=== PATIENT | female | born 1930 | race Caucasian/White ===

== ENCOUNTER 2020-10-14 18:40 | Emergency (ER) | payer MEDICARE ==
[~2020-10-14] VITALS: Wt 72.6 kg
[2020-10-14 20:04] LABS: HEMATOCRIT 34.5 % (37.0-47.0); MEAN CORPUSCULAR HGB 29.4 pg (27.0-31.0); MEAN CORPUSCULAR HGB CONC 31.6 g/dl (33.0-37.0); MEAN PLATELET VOLUME 9.6 fl (9.6-12.3); PLATELET COUNT AUTOMATED 279 10*3/uL (130-400); RED BLOOD COUNT 3.71 10*6/uL (4.10-5.10); RED CELL DISTRI WIDTH 13.9 % (0-14.5); WHITE BLOOD COUNT 14.2 10*3/uL (4.8-10.8)
[2020-10-14 20:16] LABS: ALBUMIN 2.4 gm/dl (3.1-4.5); CREATININE 6.17 mg/dL (0.55-1.02)
[2020-10-14 20:29] LABS: POTASSIUM 6.2 mmol/L (3.5-5.1)
[2020-10-14 20:31] LABS: BASOPHILS 1 % (0-1); TOTAL CELLS COUNTED 100 #CELLS
[2020-10-14 20:35] LABS: PLATELET SUFFICIENCY NORMAL (NORMAL)
[2020-10-14 20:57] LABS: BILIRUBIN Negative (Negative); CLARITY Clear (Clear); COLOR Yellow (Yellow); GLUCOSE Negative (Negative)
[2020-10-14 20:58] LABS: BLOOD Negative (Negative); KETONE Negative (Negative); LEUKO ESTERASE Trace (Negative); NITRITE Negative (Negative); SPECIFIC GRAVITY 1.005 (1.001-1.030); UROBILINOGEN 0.2 E.U./dl (0.0-1.0)
[2020-10-14 21:03] LABS: BACTERIA 1+
== END 2020-10-15 02:23 | disposition short-term general hospital (02) ==
LOC: ED 18:40
PROVIDERS: Emergency Medicine
DX: N17.9 Acute kidney failure, unspecified (principal); E87.5 Hyperkalemia; N13.2 Hydronephrosis with renal and ureteral calculous obstruction; Z20.828 Contact with and (suspected) exposure to other viral communicable diseases